=== PATIENT | female | born 2000 | race Two or more races ===

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

== ENCOUNTER 2021-01-28 09:24 | Emergency (ER) | payer MEDICAID ==
[~2021-01-28] VITALS: Ht 157.5 cm; Wt 86.4 kg
[~2021-01-28 09:24] MED LIST changes: +ALBU6.7H9 INH
[2021-01-28 09:37] VITALS: BP 100/82
== END 2021-01-28 10:05 | disposition home or self-care (01) ==
LOC: ER 09:25
DX: R05.9 Cough, unspecified (principal); R09.81 Nasal congestion; J02.9 Acute pharyngitis, unspecified; Z20.822 Contact with and (suspected) exposure to COVID-19
CPT/HCPCS: 36415; 99283; U0003; U0005

== ENCOUNTER 2021-11-21 13:49 | Emergency (ER) | payer MEDICAID ==
[~2021-11-21] VITALS: Ht 157.5 cm; Wt 93.6 kg
[2021-11-21 14:08] VITALS: BP 118/73
[2021-11-21] MEDS ORDERED: HYDR-3965 PO (18:06)
== END 2021-11-21 18:18 | disposition home or self-care (01) ==
LOC: ER 13:49
DX: S93.402A Sprain of unspecified ligament of left ankle, initial encounter (principal); Z79.899 Other long term (current) drug therapy
CPT/HCPCS: 73610; 99283; L4360

== ENCOUNTER 2022-08-03 20:20 | Emergency (ER) | payer MEDICAID ==
[~2022-08-03] VITALS: Ht 154.9 cm; Wt 100.0 kg
[~2022-08-03 20:20] MED LIST changes: +ALBU6.7H14 INH; -ALBU6.7H9 INH
[2022-08-03] MEDS ORDERED: normal saline 1000ml 1,000 ML IV ONE (20:55)
[2022-08-03 21:09] LABS: BASOPHILS # (AUTO) 0.1 X10'3 (0-0.2); BASOPHILS % (AUTO) 0.9 % (0-1); EOSINOPHILS # (AUTO) 0.2 X10'3 (0-0.9); HEMATOCRIT 45.1 % (35.0-45.0); HEMOGLOBIN 15.4 g/dl (12.0-16.0); LYMPHOCYTES % (AUTO) 36.1 % (21-51); MEAN CORPUSCULAR HEMOGLOBIN 30.9 PG (27.0-31.0); MEAN CORPUSCULAR HGB CONC 34.2 g/dL (33.0-36.5); MEAN CORPUSCULAR VOLUME 90.4 FL (78-98); MEAN PLATELET VOLUME 8.2 FL (7.4-10.4); MONOCYTES # (AUTO) 0.7 X10'3 (0-0.9); MONOCYTES % (AUTO) 8.3 % (2-12); NEUTROPHILS # (AUTO) 4.4 X10'3 (1.8-7.7); NEUTROPHILS % (AUTO) 52.7 % (42-75); PLATELET COUNT 256 X10'3 (140-440); RED BLOOD COUNT 4.99 X10'6 (4.20-5.60); RED CELL DISTRIBUTION WIDTH 12.8 % (11.5-14.5); WHITE BLOOD COUNT 8.4 X10'3 (4.5-11.0)
[2022-08-03 21:14] LABS: CLARITY,URINE CLEAR (Clear); COLOR,URINE YELLOW (Yellow); GLUCOSE, URINE NEGATIVE (Neg); KETONES,URINE NEGATIVE (Neg); LEUKOCYTE ESTERASE ,URINE NEGATIVE (Neg); NITRITES, URINE NEGATIVE (Neg); OCCULT BLOOD,URINE NEGATIVE (Neg); PROTEIN,URINE NEGATIVE (Neg); UROBILINOGEN,URINE 0.2 E.U/dL (0.2-1.0)
[2022-08-03 21:15] LABS: UA COLLECTION TYPE NON-SPECIFIED; URINE HCG NEGATIVE (NEG)
[2022-08-03 21:20] LABS: ALANINE AMINOTRANSFERASE 123 U/L (12-78); ALBUMIN 4.1 G/DL (3.4-5.0); ALKALINE PHOSPHATASE 60 IU/L (20-180); ANION GAP 9 (8-16); ASPARTATE AMINO TRANSFERASE 49 U/L (10-37); BILIRUBIN,TOTAL 0.5 MG/DL (0.1-1.0); BLOOD UREA NITROGEN 9 MG/DL (7-18); BUN/CREATININE RATIO 12.9 (10.0-20.0); CALCIUM 8.9 MG/DL (8.5-10.1); CHLORIDE 104 MMOL/L (99-107); ETHANOL < 0.010 GM/DL (0.0-0.010); GLUCOSE 97 MG/DL (70-104); POTASSIUM 3.7 MMOL/L (3.5-5.1); SODIUM 141 MMOL/L (135-145); TOTAL CARBON DIOXIDE 28.4 MMOL/L (24-32); TOTAL PROTEIN 8.4 G/DL (6.4-8.2); eGFR > 90 ML/MIN
[2022-08-03 21:31] LABS: URINE AMPHETAMINE SCREEN NEGATIVE (Neg); URINE BARBITUATE SCREEN NEGATIVE (Neg); URINE BENZODIAZEPINES SCREEN NEGATIVE (Neg); URINE CANNABINOID SCREEN NEGATIVE (Neg); URINE COCAINE SCREEN NEGATIVE (Neg); URINE METHADONE SCREEN NEGATIVE (Neg); URINE OPIATE SCREEN NEGATIVE (Neg); URINE PHENCYCLIDINE SCREEN NEGATIVE (Neg)
[2022-08-03 22:07] VITALS: BP 118/90
== END 2022-08-03 22:08 | disposition home or self-care (01) ==
LOC: ER 20:21
DX: R42 Dizziness and giddiness (principal); H53.9 Unspecified visual disturbance; R94.5 Abnormal results of liver function studies
CPT/HCPCS: 36415; 80053; 80305; 80320; 81003; 81025; 83735; 85025; 93005; 96360; 99284; J7030

== ENCOUNTER 2023-09-12 09:18 | Emergency (ER) | payer MEDICAID ==
[~2023-09-12] VITALS: Ht 154.9 cm; Wt 100.7 kg
[2023-09-12 09:43] VITALS: BP 136/91; PULSE 87; TEMP 98.1; O2SAT 100
[2023-09-12 11:30] VITALS: RESP 18
[2023-09-12] MEDS ORDERED: ALBU8HFA INH (12:24)
[2023-09-12] MEDS ORDERED: PROM118S5 PO (12:24)
[2023-09-12] MEDS ORDERED: AZIT250T83 PO (12:24)
== END 2023-09-12 12:40 | disposition home or self-care (01) ==
LOC: ER 09:18
DX: J22 Unspecified acute lower respiratory infection (principal); Z79.899 Other long term (current) drug therapy
CPT/HCPCS: 99283